=== PATIENT | female | born 1995 | race Two or more races ===

== ENCOUNTER → 2023-04-03 | Outpatient (CLI) | payer OTHER | LOC: M PLAIMG 13:55 | PROVIDERS: ATTEND Physician Assistant | DX: M25.562 Pain in left knee (principal) ==

== ENCOUNTER → 2023-08-22 | Outpatient (CLI) | payer OTHER | LOC: M WHC 08:55 | PROVIDERS: ATTEND Student in an Organized Health Care Education/Training Program | DX: N63.10 Unspecified lump in the right breast, unspecified quadrant (principal) ==

== ENCOUNTER 2023-09-26 07:53 | Day surgery (SDC) | payer OTHER ==
[~2023-09-26] VITALS: Ht 167.6 cm; Wt 74.6 kg
[2023-09-26 08:33] LABS: HEMATOCRIT 40.7 % (36.0-47.0); HEMOGLOBIN 12.9 g/dl (12.0-15.5)
[2023-09-26] MEDS: LR 1,000 ML IV SCH (08:35)
[2023-09-26] MEDS ORDERED: propofoL 200 MG/20 ML VIAL As Ordered ONE (08:49)
[2023-09-26] MEDS ORDERED: LIDOCAINE 2% 100MG/5ML SDV (FOR ANES.) As Ordered ONE (08:49)
[2023-09-26] MEDS ORDERED: fentaNYL 100 MCG/2 ML INJECTION As Ordered ONE (08:49)
[2023-09-26] MEDS ORDERED: ROCURONIUM BROMIDE 50MG/5ML VIAL As Ordered ONE (08:49)
[2023-09-26] MEDS ORDERED: ONDANSETRON 4MG 2ML VIAL As Ordered ONE (08:49)
[2023-09-26] MEDS ORDERED: SUGAMMADEX SODIUM 500 MG/5 ML VIAL (BRIDION) As Ordered ONE (08:49)
[2023-09-26] MEDS ORDERED: MIDAZOLAM INJ 2MG/2ML VIAL As Ordered ONE (08:50)
[2023-09-26] MEDS ORDERED: dexmedeTOMIDine (4MCG/ML)200MCG/50ML BTL (PRECEDEX) As Ordered ONE (08:51)
[2023-09-26] MEDS ORDERED: SILVER NITRATE APPLICATOR (1 = QTY 10) As Ordered ONE (09:34)
[2023-09-26] MEDS ORDERED: KETOROLAC 60MG 2ML VIAL As Ordered ONE (10:06)
[2023-09-26] MEDS ORDERED: ACETAMINOPHEN 1000MG 100ML IV BAG As Ordered ONE (10:07)
[2023-09-26] MEDS ORDERED: PHENYLephrine 500MCG 5ML (100MCG/ML) SYRINGE As Ordered ONE (10:25)
[2023-09-26] MEDS ORDERED: ePHEDrine SULFATE 25 MG/5 ML(5MG/ML) SYRINGE As Ordered ONE (10:26)
[2023-09-26] MEDS: LIDOCAINE 1% SDV 30ML VIAL As Ordered ONE (11:00)
[2023-09-26] MEDS ORDERED: fentaNYL 100 MCG/2 ML INJECTION IV PRN (11:55)
[2023-09-26] MEDS ORDERED: HYDROMORPHONE HCL 0.5 MG/ 0.5 ML SYRINGE IV PRN (11:55)
[2023-09-26] MEDS ORDERED: oxyCODONE 5MG TAB PO PRN (11:55)
[2023-09-26] MEDS ORDERED: LR 1,000 ML IV SCH (11:55)
[2023-09-26] MEDS ORDERED: ONDANSETRON 4MG 2ML VIAL IV PRN (11:55)
[2023-09-26 13:17] VITALS: BP 127/90; TEMP 97.8; O2SAT 100
== END 2023-09-26 13:25 | disposition home or self-care (01) ==
LOC: M SDC 07:53
PROVIDERS: ATTEND Obstetrics & Gynecology
DX: N84.1 Polyp of cervix uteri (principal); N85.00 Endometrial hyperplasia, unspecified
CPT/HCPCS: 36415; 58558; 81025; 85014; 85018; 88305; J0131; J1100; J1885; J2250; J2371; J2405; J3010

== ENCOUNTER 2023-09-30 08:38 | Emergency (ER) | payer OTHER ==
[~2023-09-30] VITALS: Ht 167.6 cm; Wt 73.9 kg
[2023-09-30] MEDS ORDERED: OXYC-517 (08:48)
[2023-09-30] MEDS ORDERED: IBUP1TAB7 (08:48)
[2023-09-30] MEDS ORDERED: ONDA-83 (08:48)
[2023-09-30] MEDS ORDERED: NAPR-837 PO (11:58)
[2023-09-30 12:02] VITALS: BP 120/67; TEMP 98.3; O2SAT 100
== END 2023-09-30 12:08 | disposition home or self-care (01) ==
LOC: M ED 08:38
DX: S03.41XA Sprain of jaw, right side, initial encounter (principal); S40.021A Contusion of right upper arm, initial encounter; S70.11XA Contusion of right thigh, initial encounter; Y92.019 Unspecified place in single-family (private) house as the place of occurrence of the external cause; Y93.9 Activity, unspecified; Y99.9 Unspecified external cause status; W19.XXXA Unspecified fall, initial encounter; Z79.1 Long term (current) use of non-steroidal anti-inflammatories (NSAID); Z79.899 Other long term (current) drug therapy

== ENCOUNTER 2023-10-05 05:45 | Emergency (ER) | payer OTHER ==
[~2023-10-05] VITALS: Ht 167.6 cm; Wt 74.4 kg
[~2023-10-05 05:45] MED LIST: IBUP1TAB7; NAPR-837 PO; ONDA-83; OXYC-517
[2023-10-05 06:50] LABS: BASO % 0.5 % (0.0-1.0); EOS # 0.1 10^3/uL (0.0-0.5); EOS % 1.6 % (0.0-3.0); HEMATOCRIT 37.4 % (36.0-47.0); HEMOGLOBIN 11.9 g/dl (12.0-15.5); LYMPH # 2.5 10^3/uL (1.5-5.0); MEAN CORPUSCULAR HEMOGLOBIN 26.7 pg (27.0-33.0); MEAN CORPUSCULAR HGB CONC 31.8 g/dl (32.0-36.5); MEAN CORPUSCULAR VOLUME 83.9 fl (80.0-96.0); MONO # 0.3 10^3/uL (0.0-0.8); MONO % 6.2 % (2.0-8.0); NEUTROPHILS # 1.6 10^3/uL (1.5-8.5); NEUTROPHILS % 35.7 % (36.0-66.0); PLATELET COUNT, AUTOMATED 312 10^3/uL (150-450); RED BLOOD COUNT 4.46 10^6/uL (4.00-5.40); WHITE BLOOD COUNT 4.4 10^3/uL (4.0-10.0)
[2023-10-05 07:10] LABS: BLOOD UREA NITROGEN 10 MG/DL (9-23); CALCIUM LEVEL 9.2 MG/DL (8.5-10.1); CARBON DIOXIDE LEVEL 26 MMOL/L (20-31); CHLORIDE LEVEL 107 MMOL/L (98-107); CREATININE FOR GFR 0.83 MG/DL (0.55-1.30); GLOMERULAR FILTRATION RATE > 60.0 (>60); GLUCOSE, FASTING 93 MG/DL (60-100); POTASSIUM SERUM 4.2 MMOL/L (3.5-5.1); SODIUM LEVEL 140 MMOL/L (136-145)
[2023-10-05 07:28] LABS: ALBUMIN 3.7 G/DL (3.2-5.2); ALKALINE PHOSPHATASE 45 U/L (46-116); ALT/SGPT 10 U/L (7.0-40); AST/SGOT 15 U/L (<34); BILIRUBIN,DIRECT 0.2 MG/DL (<0.4); BILIRUBIN,TOTAL 0.4 MG/DL (0.3-1.2); TOTAL PROTEIN 6.8 G/DL (5.7-8.2)
[2023-10-05 07:41] LABS: HCG, SERUM QUALITATIVE NEGATIVE (NEGATIVE)
[2023-10-05] MEDS ORDERED: ISOVUE-370 76% 100ML VIAL As Ordered ONE (09:49)
[2023-10-05 10:12] VITALS: BP 113/64; TEMP 97; O2SAT 100
== END 2023-10-05 10:52 | disposition home or self-care (01) ==
LOC: M ED 05:45
DX: N93.9 Abnormal uterine and vaginal bleeding, unspecified (principal); R06.00 Dyspnea, unspecified; F10.10 Alcohol abuse, uncomplicated; Z79.1 Long term (current) use of non-steroidal anti-inflammatories (NSAID); Z79.899 Other long term (current) drug therapy
CPT/HCPCS: 36415; 71046; 71275; 80048; 80076; 81001; 84703; 85025; 85379; 86850; 86900; 86901; 94760; 99284; Q9967

== ENCOUNTER → 2024-04-24 | Outpatient (REF) | LOC: M PLAIMG 09:32 | PROVIDERS: ATTEND Physician Assistant | DX: Z00.00 Encounter for general adult medical examination without abnormal findings (principal) ==

== ENCOUNTER → 2024-05-01 | Outpatient (CLI) | payer OTHER ==
[~2024-05-01] MED LIST changes: +PROHANCE 279.3MG/ML 15ML VIAL ONE
== END ==
LOC: M PLAIMG 09:48
PROVIDERS: ATTEND Obstetrics & Gynecology
DX: Z12.31 Encounter for screening mammogram for malignant neoplasm of breast (principal); Z15.01 Genetic susceptibility to malignant neoplasm of breast; Z80.3 Family history of malignant neoplasm of breast

== ENCOUNTER 2024-07-14 05:31 | Emergency (ER) | payer OTHER ==
[~2024-07-14] VITALS: Ht 167.6 cm; Wt 72.7 kg
[~2024-07-14 05:31] MED LIST changes: -PROHANCE 279.3MG/ML 15ML VIAL ONE
[2024-07-14] MEDS ORDERED: E-Z-HD 98% w/w 340GM SUSP BTL As Ordered ONE (07:51)
[2024-07-14] MEDS ORDERED: E-Z-PAQUE 96% w/w SUSP 176GM BTL As Ordered ONE (07:51)
[2024-07-14] MEDS ORDERED: E-Z-GAS II EFFERVESCENT PACKET (SODIUM BICARB./CITRIC ACID/SIMETHICONE) As Ordered ONE (07:51)
[2024-07-14 09:13] VITALS: BP 116/72; TEMP 97.8; O2SAT 99
== END 2024-07-14 09:22 | disposition home or self-care (01) ==
LOC: M ED 05:31
DX: K20.80 Other esophagitis without bleeding (principal); Z79.1 Long term (current) use of non-steroidal anti-inflammatories (NSAID); Z79.899 Other long term (current) drug therapy